=== PATIENT | female | born 1990 | race Caucasian/White ===

== ENCOUNTER → 2016-11-18 | Outpatient (CLI) | payer OTHER ==
[2016-11-18 13:31] LABS: CH 29.3; CHCM 34.8; HCT 39.5 % (34.0-46.0); HDW 2.76; HGB 13.2 gm/dL (11.4-16.0); MCH 28.4 pg (25.0-35.0); MCHC 33.5 g/dL (31.0-37.0); MCV 84.8 fL (80.0-100.0); Mean Platelet Volume 7.4; RBC 4.66 m/uL (3.80-5.40); RDW 12.8 % (11.5-15.5); WBC 7.9 k/uL (3.8-10.6)
[2016-11-18 13:49] LABS: Glucose 81 mg/dL (74-99); Non-African American GFR(MDRD) >60 (>60 ml/min/1.73 sqM)
[2016-11-18 14:24] LABS: Hepatitis B Surface Ag Index 0.05
[2016-11-18 19:29] LABS: Treponemal Ab Non-Reactive (Non-Reactive)
[2016-11-19 13:10] LABS: HIV-1/HIV-2 Ab Screen NONREAC (NON REAC)
== END | disposition home or self-care (01) ==
LOC: LABWHC1 12:37
PROVIDERS: ATTEND Obstetrics & Gynecology
DX: O26.811 Pregnancy related exhaustion and fatigue, first trimester (principal); Z3A.00 Weeks of gestation of pregnancy not specified
CPT/HCPCS: 36415; 82565; 82947; 85027; 86762; 86777; 86778; 86780; 86850; 86900; 86901; 87340; 87389

== ENCOUNTER → 2017-01-08 | Outpatient (CLI) | payer OTHER ==
[2017-01-12 07:47] LABS: Mis test requested (Blood) AFP QUAD Screen
== END ==
LOC: LABWHC1 09:44
PROVIDERS: ATTEND Obstetrics & Gynecology
DX: Z34.92 Encounter for supervision of normal pregnancy, unspecified, second trimester (principal); Z3A.00 Weeks of gestation of pregnancy not specified
CPT/HCPCS: 36415; 82105; 82677; 84702; 86336

== ENCOUNTER → 2017-01-19 | Outpatient (CLI) | payer OTHER ==
[2017-01-19 20:46] LABS: Basophils % (A) 0 %; CH 29.3; CHCM 33.8; Eosinophils # (A) 0.1 k/uL (0-0.7); Eosinophils % (A) 1 %; HCT 37.5 % (34.0-46.0); HDW 2.61; HGB 12.5 gm/dL (11.4-16.0); Luc # (Auto) 0.11; Luc % (Auto) 2; Lymphocytes # (A) 1.4 k/uL (1.0-4.8); Lymphocytes % (A) 22 %; MCHC 33.3 g/dL (31.0-37.0); Mean Platelet Volume 7.4; Monocytes # (A) 0.4 k/uL (0-1.0); Monocytes % (A) 6 %; Neutrophils # (A) 4.5 k/uL (1.3-7.7); Neutrophils % (A) 70 %; RBC 4.31 m/uL (3.80-5.40); RDW 13.4 % (11.5-15.5); WBC 6.4 k/uL (3.8-10.6); WBC (Perox) 6.76
[2017-01-19 20:54] LABS: ALT 41 U/L (9-52); AST 33 U/L (14-36); Alkaline Phosphatase 50 U/L (38-126); Anion Gap 7 mmol/L; Blood Urea Nitrogen 9 mg/dL (7-17); Calcium 9.3 mg/dL (8.4-10.2); Carbon Dioxide 23 mmol/L (22-30); Chloride 104 mmol/L (98-107); Cholesterol 180 mg/dL (<200); Glucose 73 mg/dL (74-99); HDL Cholesterol 68 mg/dL (40-60); Non-African American GFR(MDRD) >60 (>60 ml/min/1.73 sqM); Potassium 4.2 mmol/L (3.5-5.1); Sodium 134 mmol/L (137-145); Total Bilirubin 0.6 mg/dL (0.2-1.3); Total Protein 6.9 g/dL (6.3-8.2); Triglycerides 175 mg/dL (<150)
== END | disposition home or self-care (01) ==
LOC: MMGSC 11:22
PROVIDERS: ATTEND Family Medicine
DX: Z00.00 Encounter for general adult medical examination without abnormal findings (principal)
CPT/HCPCS: 36415; 80053; 80061; 84439; 84443; 85025

== ENCOUNTER → 2017-02-04 | Outpatient (CLI) | payer OTHER ==
--- NOTE | 2017-01-29 13:21 | US ---
EXAMINATION TYPE: US OB anatomy transabd DATE OF EXAM: 01/29/2017 11:48 AM COMPARISON: NONE HISTORY: 27-year-old female 036.62X0 Large for Dates TECHNIQUE: Transabdominal (TA) FINDINGS: EXAM MEASUREMENTS: GESTATIONAL AGE / DATING Physician Established: (19 weeks/0 days) EDC: 06/25/17 Dates by LMP: Patient unsure Dates by First Scan: unknown Dates by Current Scan for: (18 weeks/5 days +/- 1W0D) EDC: 06/27/17 SURVEY IUP: Single PLACENTA: Anterior PREVIA: No previa FABIOLA: 10.3 cm (8.3 - 22.5 cm) CERVICAL LENGTH (transabdominal: norm > 3.0cm): 4.0 cm BIOMETRY PRESENTATION: Vertex LIE: Transverse lie with head maternal Left BPD: 4.3 cm 18 weeks / 6 days HC: 15.8 cm 18 weeks / 5 days AC: 13.5 cm 19 weeks / 0 days FL: 2.9 cm 19 weeks / 0 days ESTIMATED WEIGHT IN GRAMS: 267 grams ESTIMATED WEIGHT IN LBS/OZS: 0 lbs. 9 oz. WEIGHT PERCENTAGE BASED ON ESTABLISHED DATE: 43 % HC/AC: 1.2 FL/AC: 21.8 HEART RATE: 165 bpm RHYTHM: Normal ANATOMY SEEN (within normal limits): Lateral Vent (< 1 cm) 0.6 cm Cisterna Magna (< 1.1 cm) 0.2 cm Nuchal Fold (< 0.6 cm) 0.3 cm Cerebellum (varies with age) 1.6 cm Choroid Plexus (bilateral) Stomach Situs Diaphragm Kidneys (bilateral) Bladder Three Vessel Cord Arms (bilateral) Legs (bilateral) ANATOMY NOT SEEN or SUBOPTIMALLY VISUALIZED: due to position, patient scheduled for call back Midline Falx Cavus Septi Pellucidi Nose / Lips Four Chamber Heart Outflow tracts: LVOT/RVOT Cord Insert Longitudinal Spine Transverse Spine PAID SEARCH MANAGER NOTES: Head very low, difficult to assess. IMPRESSION: 1. Single live intrauterine with established gestational age of 19 weeks 0 days. Current ul trasound biometry is concordant (18 weeks 5 days) placing the child at the 43rd percentile for weight . 2. Some of the structures on the survey (midline falx, CSP, nose/lips, four-chamber heart, outf low tracts, cord insertion, and spine) were suboptimally visualized. Patient has been scheduled for a rescan of missed anatomy. 3. The remaining structures appear normal.
--- NOTE | 2017-02-04 11:12 | US ---
EXAMINATION TYPE: US OB Call Back DATE OF EXAM: 02/04/2017 10:45 AM COMPARISON: 2017 CLINICAL HISTORY: 036.62X0 Large for Dates. GESTATIONAL AGE / DATING Dates by Initial Survey Scan: (19 weeks/4 days) EDC: 06/25/2017 HEART RATE: 138 bpm RHYTHM: Normal ANATOMY SEEN (second anatomic survey look): Midline Falx: Yes within normal limits Cavus Septi Pellucidi: Yes within normal limits Four Chamber Heart: Yes within normal limits Outflow tracts:? LVOT/RVOT Nose / Lips: Yes within normal limits Longitudinal Spine: Yes within normal limits Transverse Spine: Yes within normal limits IMPRESSION: Normal Second Look anatomic survey.
== END | disposition home or self-care (01) ==
LOC: RADUSWWP 01-29 10:44
PROVIDERS: ATTEND Obstetrics & Gynecology
DX: O36.62X0 Maternal care for excessive fetal growth, second trimester, not applicable or unspecified (principal); Z3A.19 19 weeks gestation of pregnancy
CPT/HCPCS: 76811

== ENCOUNTER → 2017-03-17 | Outpatient (CLI) | payer OTHER ==
[2017-03-17 10:19] LABS: CH 29.9; CHCM 33.9; HCT 34.6 % (34.0-46.0); HDW 2.69; HGB 11.8 gm/dL (11.4-16.0); MCH 30.1 pg (25.0-35.0); MCV 88.7 fL (80.0-100.0); RDW 13.5 % (11.5-15.5)
== END | disposition home or self-care (01) ==
LOC: LABWHC1 08:04
PROVIDERS: ATTEND Obstetrics & Gynecology
DX: Z34.82 Encounter for supervision of other normal pregnancy, second trimester (principal); Z3A.00 Weeks of gestation of pregnancy not specified
CPT/HCPCS: 36415; 82950; 85027

== ENCOUNTER 2017-06-18 06:03 | Inpatient (IN) | payer OTHER ==
--- NOTE | 2017-06-17 21:30 | P.HPOB ---
History of Present Illness H&P Date: 06/17/17 Chief Complaint: Scheduled repeat section This is a 27-year-old female 2 para 1 with an estimated date of confinement of 06/25/2017, estimated gestational age of 39-0/7 weeks, who presents to labor and delivery for scheduled repeat section. She has been feeling good movement she denies any regular contractions. labs: Toxoplasma-negative Syphilis antibody-negative GC/chlamydia-negative HIV-nonreactive Rubella-immune Blood type-A+ Antibody screen-negative Random glucose-81 Hepatitis B surface antigen-negative Hemoglobin-13.2 Quad screen-negative One hour Glucola-111 Group B streptococcus-positive Obstetrical history: . History of 1 delivery. Gynecologic history: No history of sexual transmitted diseases. Social history: She is single. She works as an RN at [employer]. Review of Systems Constitutional: Denies chills, Denies fever Eyes: denies blurred vision, denies pain Ears, nose, mouth and throat: Denies headache, Denies sore throat Cardiovascular: Denies chest pain, Denies shortness of breath Respiratory: Denies cough Gastrointestinal: Denies abdominal pain, Denies diarrhea, Denies nausea, Denies vomiting Genitourinary: Reports pelvic pain, Reports Musculoskeletal: Reports low back pain Integumentary: Denies pruritus, Denies rash Neurological: Denies numbness, Denies weakness Psychiatric: Denies anxiety, Denies depression Past Medical History Past Medical History: Asthma History of Any Multi-Drug Resistant Organisms: MRSA Date of last positivie culture/infection: 2013 MDRO Source:: face Past Surgical History: Section Past Anesthesia/Blood Transfusion Reactions: No Reported Reaction Past Psychological History: No Psychological Hx Reported Smoking Status: Former smoker Past Alcohol Use History: None Reported Past Drug Use History: None Reported - Past Family History Mother Family Medical History: No Reported History Medications and Allergies Home Medications Medication Instructions Recorded Confirmed Type Albuterol Inhaler [Ventolin Hfa 1 - 2 puff INHALATION Q6HR PRN 06/15/17 History Inhaler] Budesonide-Formot 160-4.5 Mcg 2 puff INHALATION BID PRN 06/15/17 06/15/17 History [Symbicort 160-4.5 Mcg Inhaler] Pnv No.95/Ferrous Fum/Folic AC 1 each PO DAILY 06/15/17 06/15/17 History [ Multivitamin Tablet] Allergies Allergy/AdvReac Type Severity Reaction Status Date / Time No Known Allergies Allergy Verified 06/15/17 12:56 Exam Osteopathic Statement: *. No significant issues noted on an osteopathic structural exam other than those noted in the History and Physical/Consult. HEENT: Within normal limits Heart: Regular rate and rhythm Lungs: Clear to auscultation bilaterally Abdomen: Cervix: Closed/60%/-2 heart tones: 140s by Doppler. Extremities: Negative Homans Assessment and Plan (1) 39 weeks gestation of Status: Acute (2) Previous delivery affecting Status: Acute Plan: Proceed with repeat low transverse section. I have discussed the risks, benefits, and alternative therapies for the above- mentioned procedure and for both sedation/anesthesia as well as necessary blood products administration, if indicated, as they pertain to this patient. The patient has indicated her understanding and acceptance of the risks and procedures discussed.
[2017-06-18] MEDS ORDERED: CITRIC ACID-SODIUM CITRATE 15 ML CUP PO ONE (06:06)
[2017-06-18] MEDS ORDERED: LACTATED RINGERS 1,000 ML IV ONE (06:06)
[2017-06-18] MEDS ORDERED: LIDOCAINE 1% 20 ML VIAL (10MG/ML) FOR IV START INTRADERMA PRN (06:06)
[2017-06-18] MEDS ORDERED: ceFAZolin 2 GM in SODIUM CHLORIDE 0.9% 100 ML IVPB ONE (06:06)
[2017-06-18 06:53] VITALS: BMI 31.4
[2017-06-18 07:06] LABS: Basophils % (A) 0 %; CH 30.5; CHCM 35.3; Eosinophils # (A) 0.1 k/uL (0-0.7); Eosinophils % (A) 1 %; HCT 35.9 % (34.0-46.0); HDW 2.86; HGB 12.7 gm/dL (11.4-16.0); Luc # (Auto) 0.19; Luc % (Auto) 3; Lymphocytes # (A) 1.6 k/uL (1.0-4.8); Lymphocytes % (A) 24 %; MCH 30.8 pg (25.0-35.0); MCHC 35.5 g/dL (31.0-37.0); MCV 86.8 fL (80.0-100.0); Mean Platelet Volume 7.4; Monocytes # (A) 0.5 k/uL (0-1.0); Monocytes % (A) 8 %; Neutrophils # (A) 4.2 k/uL (1.3-7.7); Neutrophils % (A) 64 %; RBC 4.14 m/uL (3.80-5.40); RDW 13.8 % (11.5-15.5); WBC 6.6 k/uL (3.8-10.6); WBC (Perox) 6.66
[2017-06-18] MEDS ORDERED: NALBUPHINE 10 MG/ML AMPUL ONE (07:56)
[2017-06-18] MEDS ORDERED: OXYTOCIN 10 UNIT/ML 1 ML VIAL ONE (07:56)
[2017-06-18] MEDS ORDERED: MORPHINE SULFATE (PF) 0.3 MG/0.3 ML SYR ONE (07:56)
[2017-06-18] MEDS ORDERED: ONDANSETRON 4 MG/2 ML VIAL ONE (07:56)
[2017-06-18] MEDS ORDERED: PHENYLEPHRINE-0.9% NACL SYG 1 MG/10 ML SYRINGE ONE (07:56)
[2017-06-18] MEDS ORDERED: LACTATED RINGERS 1,000 ML BAG IV ONE (07:56)
[2017-06-18] MEDS ORDERED: ePHEDrine SULFATE/0.9% NACL/PF 50 MG/5 ML SYRINGE IV ONE (07:56)
[2017-06-18] MEDS ORDERED: ceFAZolin 1,000 MG VIAL ONE (07:56)
[2017-06-18] MEDS ORDERED: diphenhydrAMINE 50 MG/ML 1 ML VIAL IVP PRN ×3 (08:20→08:49)
[2017-06-18] MEDS ORDERED: ONDANSETRON 4 MG/2 ML VIAL IVP PRN ×2 (08:20→08:49)
[2017-06-18] MEDS ORDERED: MORPHINE SULFATE 4 MG/ML SYRINGE IVP PRN (08:20)
[2017-06-18] MEDS ORDERED: NALOXONE 0.4 MG/ML 1 ML VIAL IV PRN ×2 (08:20→08:49)
--- NOTE | 2017-06-18 08:41 | P.OP ---
Date of Procedure: 06/18/17 Preoperative Diagnosis: 1. Intrauterine at 39-0/7 weeks. 2. History of previous delivery. Postoperative Diagnosis: Same Procedure(s) Performed: Repeat low transverse section Implants: Anesthesia: spinal (Duramorph) Surgeon: Yumiko Peterson Hearing Screener #1: Balwinder España Estimated Blood Loss (ml): 800 Pathology: other (Placenta) Condition: stable Disposition: floor Indications for Procedure: This is a 27 year old female 2 para 1 at 39-0/7 weeks who presents for repeat section. I have discussed the risks, benefits, and alternative therapies for the above- mentioned procedure and for both sedation/anesthesia as well as necessary blood products administration, if indicated, as they pertain to this patient. The patient has indicated her understanding and acceptance of the risks and procedures discussed. Operative Findings: A viable female infant is noted in the vertex presentation with scores of 9 at 1 minute and 9 at 5 minutes and weight of 8 lbs. 3 oz. Normal uterus tubes and ovaries are noted. Description of Procedure: The patient is taken to the operating room where she is placed in the dorsal supine position with leftward tilt after spinal Duramorph anesthesia is given. She is prepped and draped in the normal sterile fashion. Skin was tested and found to be adequately anesthetized. A Pfannenstiel skin incision was made with a scalpel removing the previous laparotomy scar. A second knife was used to carry the incision down to the underlying layer of fascia. The fascia was nicked in the midline with a scalpel and then extended laterally bilaterally with Sharp scissors. The anterior lip of the fascia was grasped with 2 Damaso clamps and then dissected off the underlying rectus muscle in the midline with Sharp scissors. The inferior aspect of the fascial incision was grasped with 2 Damaso clamps and dissected off the underlying rectus muscle and the midline with Sharp scissors. Next the peritoneum layer was tented up with 2 hemostats and then entered sharply with the scalpel. The incision is extended superiorly and inferiorly with Metzenbaum scissors. Next a DeLee retractor is placed. The bladder flap was noted to be very low in the pelvis, and therefore it was not developed. The lower uterine segment is incised in transverse fashion well above the level of the bladder with the scalpel and then bluntly entered with a hemostat. Clear fluid is noted. The incision was then extended laterally bilaterally with 2 fingers. Next the 's head is delivered through the incision. Nose and mouth are bulb suctioned. The remainder of the is easily delivered and placed on mother's abdomen. Cord is clamped and cut. Infant is taken to warmer by nursing staff. Uterine fundus is gently massaged and placenta is delivered manually. Uterus is exteriorized and cleared of all clots and debris. Uterine incision is closed with 0 Vicryl suture in a running locked fashion. A second layer of 0 Vicryl suture is used in a running fashion for hemostasis. Good hemostasis is noted. Posterior cul-de-sac is suctioned of all clots and debris. Uterus is returned to the abdomen. Incision is noted to be hemostatic. Peritoneal layer is closed with 0 Vicryl suture in a running fashion. Muscle layer is reapproximated with 0 Vicryl suture in interrupted fashion. Fascia layer is then closed with 0 PDS suture with 2 sutures meeting in the midline and the knots buried in either side and in the midline. The subcutaneous tissue was then closed with 2-0 Vicryl suture. Skin layer was then closed with eryn. All sponge and needle counts are correct. The patient is taken to recovery room in stable condition.
[2017-06-18] MEDS ORDERED: SYMBICORT 160-4.5 MCG INHALER INHALATION PRN (08:49)
[2017-06-18] MEDS ORDERED: Acetaminophen-Codeine 300-30mg TAB PO PRN (08:49)
[2017-06-18] MEDS ORDERED: LANOLIN CREAM 5 GM TUBE TOPICAL PRN (08:49)
[2017-06-18] MEDS ORDERED: diphenhydrAMINE 25 MG CAP PO PRN (08:49)
[2017-06-18] MEDS ORDERED: diphenhydrAMINE 50 MG CAP PO PRN (08:49)
[2017-06-18] MEDS ORDERED: OXYTOCIN 20 UNITS/1000 ML NS 1,000 ML IV SCH (08:49)
[2017-06-18] MEDS ORDERED: ALBUTEROL NEBULIZED 2.5 MG/3 ML INHALATION PRN (08:49)
[2017-06-18] MEDS ORDERED: ZOLPIDEM 5 MG TAB PO PRN (08:49)
[2017-06-18] MEDS ORDERED: METOCLOPRAMIDE 5 MG/ML 2 ML VIAL IVP PRN (08:49)
[2017-06-18] MEDS ORDERED: ACETAMINOPHEN TAB 325 MG TAB PO PRN (08:49)
[2017-06-18] MEDS: KETOROLAC 30 MG/ML 1 ML VIAL IVP PRN ×2 (09:03→19:49)
[2017-06-18] MEDS: LACTATED RINGERS 1,000 ML IV SCH ×2 (09:09→10:34)
[2017-06-18] MEDS: SENNOSIDES-DOCUSATE SODIUM 1 EACH TAB PO SCH ×2 (09:10→19:48)
[2017-06-19] MEDS: LACTATED RINGERS 1,000 ML IV SCH (01:42)
[2017-06-19] MEDS: KETOROLAC 30 MG/ML 1 ML VIAL IVP PRN ×2 (02:08→08:08)
[2017-06-19 05:38] LABS: Basophils % (A) 0 %; CH 30.3; CHCM 34.5; Eosinophils % (A) 0 %; HCT 30.1 % (34.0-46.0); HDW 2.84; HGB 10.2 gm/dL (11.4-16.0); Luc # (Auto) 0.22; Luc % (Auto) 2; Lymphocytes # (A) 1.5 k/uL (1.0-4.8); Lymphocytes % (A) 12 %; MCV 88.2 fL (80.0-100.0); Mean Platelet Volume 7.9; Monocytes # (A) 0.7 k/uL (0-1.0); Monocytes % (A) 6 %; Neutrophils # (A) 9.8 k/uL (1.3-7.7); Neutrophils % (A) 80 %; RBC 3.41 m/uL (3.80-5.40); RDW 14.1 % (11.5-15.5); WBC 12.3 k/uL (3.8-10.6); WBC (Perox) 13.57
[2017-06-19] MEDS: SENNOSIDES-DOCUSATE SODIUM 1 EACH TAB PO SCH ×2 (08:36→19:52)
--- NOTE | 2017-06-19 12:18 | P.PNOBGPC ---
Subjective - Subjective Principal diagnosis: S/P RLTCS POD #1 Interval history: Patient seen and examined. Ambulating and voiding without difficulty. Positive flatus. Tolerating regular diet. Denies nausea, vomiting, chest pain , shortness of breath or calf pain. Patient reports: Reports appetite normal, Reports voiding normally, Reports pain well controlled, Reports ambulating normally : doing well Objective - Vital Signs Latest vital signs: Vital Signs Temp Pulse Resp BP Pulse Ox 06/19/17 08:00 98.1 F 73 18 102/64 06/19/17 04:00 97.7 F 64 16 105/56 06/19/17 00:00 98.2 F 69 16 91/49 96 06/18/17 20:00 98.1 F 78 16 103/57 97 06/18/17 16:00 98.4 F 68 17 88/49 98 Intake and Output 06/18/17 06/19/17 06/19/17 22:59 06:59 14:59 Intake Total 600 1600 Output Total 950 750 Balance -350 850 Intake: Intake, IV Titration 400 Amount Lactated Ringers 1,000 ml 400 @ 4000 mls/hr IV .Q15M ONE Rx#:[id number] Oral 600 1200 Output: Urine 950 750 Uretheral (Mix) 600 Other: # Voids 1 1 1 - Exam Lungs: bilateral: normal Chest: Normal S1, Normal S2 Extremities: Present: normal Abdomen: Present: normal appearance, soft. Absent: distention, tenderness Incision: Present: normal, dry, intact (With Alvin) Uterus: Present: normal, firm - Labs Labs: Abnormal Lab Results - Last 24 Hours (Table) 06/19/17 Range/Units 05:27 WBC 12.3 H (3.8-10.6) k/uL RBC 3.41 L (3.80-5.40) m/uL Hgb 10.2 L (11.4-16.0) gm/dL Hct 30.1 L (34.0-46.0) % Plt Count 129 L (150-450) k/uL Neutrophils # 9.8 H (1.3-7.7) k/uL Assessment and Plan (1) S/P repeat low transverse Narrative/Plan: 1. Continue postoperative care 2. Increase ambulation 3. Abdominal support Binder Current Visit: Yes Status: Acute Code(s): Z98.891 - HISTORY OF UTERINE SCAR FROM PREVIOUS SURGERY SNOMED Code(s): 685218158
[2017-06-19] MEDS: Acetaminophen-Codeine 300-30mg TAB PO PRN ×2 (14:33→19:52)
[2017-06-19 16:01] VITALS: RESP 16
[2017-06-19] MEDS: IBUPROFEN 600 MG TAB PO PRN ×2 (17:18→23:50)
[2017-06-19] MEDS: SIMETHICONE 80 MG CHEWABLE PO SCH ×2 (17:19→23:32)
[2017-06-20] MEDS: Acetaminophen-Codeine 300-30mg TAB PO PRN ×2 (03:16→09:12)
[2017-06-20] MEDS: IBUPROFEN 600 MG TAB PO PRN (06:07)
[2017-06-20 08:27] VITALS: BP 113/66; PULSE 72; TEMP 98.1
[2017-06-20] MEDS: SENNOSIDES-DOCUSATE SODIUM 1 EACH TAB PO SCH (08:31)
[2017-06-20] MEDS: SIMETHICONE 80 MG CHEWABLE PO SCH (09:15)
--- NOTE | 2017-06-20 09:37 | P.DS ---
Providers Date of admission: 06/18/17 06:03 Expected date of discharge: 06/20/17 Attending physician: Yumiko Peterson Primary care physician: Stated None - Discharge Diagnosis(es) (1) S/P repeat low transverse Current Visit: Yes Status: Acute Hospital Course: Patient presented for a repeat low transverse . She underwent this procedure without complication. She'll be discharged home postoperative day #2 in stable condition to follow-up with Dr. Peterson in one week. Denies nausea, vomiting, chest pain, shortness of breath or calf pain. Her incision is clean, dry, intact. Plan - Discharge Summary New Discharge Prescriptions: New Acetaminophen-Codeine 300-30mg [Tylenol w/codeine #3] 2 each PO Q4HR PRN #30 tab PRN Reason: Moderate To Severe Pain Ibuprofen [Motrin] 600 mg PO Q6HR PRN #30 tab PRN Reason: Mild Pain Or Fever >= 100.5 No Action Budesonide-Formot 160-4.5 Mcg [Symbicort 160-4.5 Mcg Inhaler] 2 puff INHALATION BID PRN PRN Reason: Shortness Of Breath Albuterol Inhaler [Ventolin Hfa Inhaler] 1 - 2 puff INHALATION Q6HR PRN PRN Reason: Shortness Of Breath Pnv No.95/Ferrous Fum/Folic AC [ Multivitamin Tablet] 1 each PO DAILY Discharge Medication List Albuterol Inhaler [Ventolin Hfa Inhaler] 1 - 2 puff INHALATION Q6HR PRN [History] Budesonide-Formot 160-4.5 Mcg [Symbicort 160-4.5 Mcg Inhaler] 2 puff INHALATION BID PRN 06/15/17 [History] Pnv No.95/Ferrous Fum/Folic AC [ Multivitamin Tablet] 1 each PO DAILY [History] Acetaminophen-Codeine 300-30mg [Tylenol w/codeine #3] 2 each PO Q4HR PRN #30 tab 06/20/17 [Rx] Ibuprofen [Motrin] 600 mg PO Q6HR PRN #30 tab 06/20/17 [Rx] Follow up Appointment(s)/Referral(s): Stephanie Geller DO [Doctor of Osteopathic Medicine] - 6 Weeks Discharge Disposition: HOME SELF-CARE
== END 2017-06-20 11:15 | disposition home or self-care (01) | DRG 766 ==
LOC: 4FBP 06:03
PROVIDERS: ADMIT Obstetrics & Gynecology; ATTEND Obstetrics & Gynecology
PROC: 10D00Z1 Extraction of Products of Conception, Low, Open Approach (ICD-10-PCS; principal; 2017-06-18 08:00)
DX: O34.211 Maternal care for low transverse scar from previous cesarean delivery (principal); J45.909 Unspecified asthma, uncomplicated; O99.52 Diseases of the respiratory system complicating childbirth; Z37.0 Single live birth; Z3A.39 39 weeks gestation of pregnancy; Z79.51 Long term (current) use of inhaled steroids; Z79.899 Other long term (current) drug therapy; Z87.891 Personal history of nicotine dependence; Z86.14 Personal history of Methicillin resistant Staphylococcus aureus infection
CPT/HCPCS: 85025; 86850; 86900; 86901; 88307

== ENCOUNTER → 2017-12-22 | Outpatient (CLI) | payer OTHER ==
[2017-12-22 18:39] LABS: Basophils % (A) 0 %; Eosinophils # (A) 0.1 k/uL (0-0.7); Eosinophils % (A) 2 %; HCT 41.4 % (34.0-46.0); HGB 13.9 gm/dL (11.4-16.0); Lymphocytes % (A) 39 %; MCH 28.7 pg (25.0-35.0); MCHC 33.6 g/dL (31.0-37.0); MCV 85.3 fL (80.0-100.0); Mean Platelet Volume 7.9; Monocytes # (A) 0.3 k/uL (0-1.0); Monocytes % (A) 6 %; Neutrophils # (A) 2.5 k/uL (1.3-7.7); Neutrophils % (A) 50 %; Platelet Count 193 k/uL (150-450); RBC 4.86 m/uL (3.80-5.40)
[2017-12-22 18:47] LABS: ALT 25 U/L (9-52); AST 24 U/L (14-36); Albumin 4.3 g/dL (3.5-5.0); Alkaline Phosphatase 48 U/L (38-126); Anion Gap 9 mmol/L; Blood Urea Nitrogen 15 mg/dL (7-17); Calcium 9.8 mg/dL (8.4-10.2); Carbon Dioxide 27 mmol/L (22-30); Chloride 103 mmol/L (98-107); Cholesterol 178 mg/dL (<200); Glucose 85 mg/dL (74-99); HDL Cholesterol 69 mg/dL (40-60); LDL Cholesterol,Calculated 83 mg/dL (0-99); Potassium 4.4 mmol/L (3.5-5.1); Sodium 139 mmol/L (137-145); Total Bilirubin 0.7 mg/dL (0.2-1.3); Total Protein 7.4 g/dL (6.3-8.2); Triglycerides 131 mg/dL (<150)
[2017-12-22 18:56] LABS: T4, Free (Free Thyroxine) 1.19 ng/dL (0.78-2.19)
== END | disposition home or self-care (01) ==
LOC: MMGSC 10:35
PROVIDERS: ATTEND Family Medicine
DX: Z00.00 Encounter for general adult medical examination without abnormal findings (principal)
CPT/HCPCS: 36415; 80053; 80061; 84439; 84443; 85025